=== PATIENT | female | born 1980 | race Caucasian/White ===

== ENCOUNTER → 2017-03-13 | Outpatient (CLI) | payer OTHER ==
[2017-03-13 16:03] LABS: CH 31.7; CHCM 35.2; HCT 35.9 % (34.0-46.0); HDW 2.48; HGB 12.3 gm/dL (11.4-16.0); MCH 31.1 pg (25.0-35.0); MCHC 34.3 g/dL (31.0-37.0); MCV 90.5 fL (80.0-100.0); Mean Platelet Volume 7.2; RBC 3.97 m/uL (3.80-5.40); RDW 13.9 % (11.5-15.5)
[2017-03-13 16:09] LABS: Glucose 80 mg/dL (74-99); Non-African American GFR(MDRD) >60 (>60 ml/min/1.73 sqM)
[2017-03-13 16:40] LABS: Hepatitis B Surface Ag Index 0.05
[2017-03-14 01:37] LABS: Treponemal Ab Non-Reactive (Non-Reactive)
== END | disposition home or self-care (01) ==
LOC: LABWHC1 15:41
PROVIDERS: ATTEND Obstetrics & Gynecology
DX: Z34.81 Encounter for supervision of other normal pregnancy, first trimester (principal); Z3A.00 Weeks of gestation of pregnancy not specified
CPT/HCPCS: 36415; 82565; 82947; 85027; 86762; 86780; 86850; 86900; 86901; 87340

== ENCOUNTER 2017-09-25 05:50 | Inpatient (IN) | payer OTHER ==
--- NOTE | 2017-09-24 13:21 | P.HPOB ---
History of Present Illness H&P Date: 09/24/17 Chief Complaint: Repeat section. This patient is a pleasant 37 yr female EDC 10/01/2017 EGA 39 and 1/7 weeks who presents for elective repeat section. is complicated by advance maternal age, patient had normal Materni T21 and testing (46 XY). has been otherwise uncomplicated. Patient states that her is going to get a vasectomy, therefore no tubal ligation. Review of Systems Gastrointestinal: Reports heartburn Genitourinary: Reports Menstruation: Reports amenorrhea Past Medical History Past Medical History: Cancer Additional Past Medical History / Comment(s): hx of brain tumor 12 years old , kidney stones History of Any Multi-Drug Resistant Organisms: None Reported Past Surgical History: Section Additional Past Surgical History / Comment(s): brain tumor removed at age 12 Past Anesthesia/Blood Transfusion Reactions: No Reported Reaction Past Psychological History: No Psychological Hx Reported Smoking Status: Former smoker Past Alcohol Use History: None Reported Additional Past Alcohol Use History / Comment(s): smoker 12-13 years 4 cig/day quit 2012 Past Drug Use History: None Reported - Past Family History Mother Family Medical History: No Reported History Medications and Allergies Home Medications Medication Instructions Recorded Confirmed Type Pnv,Calcium 72/Iron/Folic Acid 1 each PO DAILY 03/21/16 03/28/16 History [ Plus Tablet] Acetaminophen-Codeine 300-30mg 1 - 2 each PO Q4HR PRN #30 tab 03/29/16 Rx [Tylenol w/codeine #3] Ibuprofen [Motrin] 600 mg PO Q6HR PRN #40 tab 03/29/16 Rx Allergies Allergy/AdvReac Type Severity Reaction Status Date / Time No Known Allergies Allergy Verified 03/21/16 12:17 Exam - OBG Physical Exam Abdomen: bowel sounds normal, no diffuse tenderness, no bruit present, no guarding noted, no hepatomegaly, no splenomegaly, no mass Vulva: both: normal Vagina: normal moisture, no discharge Cervix: no lesion, no discharge Uterus: enlarged (Fundal height is 40cm.) Results labs: A positive, Rubella immune, LVR-SOE-VduX negative, Materni T21 normal, GBS was negative. Normal ultrasounds. Assessment and Plan Assessment: This is a pleasant 37 yr female 39 and 1/7 weeks who presents for elective repeat section. I have discussed this surgery and risks with the patient, including risks: infection, bleeding, possible injury to bowel/bladder /vessels/and/or other organs. Risk of DVT and PE. All of the patients questions were answered and a written consent is obtained. (1) Third trimester Status: Acute Code(s): Z33.1 - STATE, INCIDENTAL SNOMED Code(s): 74850816 (2) Previous delivery affecting Status: Acute Code(s): O34.21 - MATERNAL CARE FOR SCAR FROM PREVIOUS * DO NOT USE * SNOMED Code(s): 410418907 (3) Elderly multigravida Status: Acute Code(s): O09.529 - SUPERVISION OF ELDERLY MULTIGRAVIDA, UNSPECIFIED TRIMESTER SNOMED Code(s): 191380640
[2017-09-25] MEDS ORDERED: CITRIC ACID-SODIUM CITRATE 15 ML CUP PO ONE (06:07)
[2017-09-25] MEDS ORDERED: LACTATED RINGERS 1,000 ML IV SCH (06:07)
[2017-09-25] MEDS ORDERED: LACTATED RINGERS 1,000 ML IV ONE (06:07)
[2017-09-25 06:19] LABS: Basophils % (A) 0 %; Eosinophils # (A) 0.1 k/uL (0-0.7); Eosinophils % (A) 1 %; HCT 34.1 % (34.0-46.0); HGB 11.3 gm/dL (11.4-16.0); Lymphocytes # (A) 2.4 k/uL (1.0-4.8); Lymphocytes % (A) 38 %; MCHC 33.2 g/dL (31.0-37.0); MCV 87.5 fL (80.0-100.0); Mean Platelet Volume 9.1; Monocytes # (A) 0.3 k/uL (0-1.0); Monocytes % (A) 5 %; Neutrophils # (A) 3.4 k/uL (1.3-7.7); Neutrophils % (A) 55 %; Platelet Count 187 k/uL (150-450); RDW 13.7 % (11.5-15.5); WBC 6.2 k/uL (3.8-10.6)
[2017-09-25 06:33] VITALS: BMI 34.3
[2017-09-25] MEDS ORDERED: ceFAZolin IN SWFI 2 GM/20 ML SYRINGE IVP ONE (07:30)
[2017-09-25] MEDS ORDERED: fentaNYL (PF) 50 MCG/ML 2 ML AMP ONE (07:43)
[2017-09-25] MEDS ORDERED: PHENYLEPHRINE-0.9% NACL SYG 1 MG/10 ML SYRINGE ONE (07:43)
[2017-09-25] MEDS ORDERED: MORPHINE SULFATE (PF) 0.3 MG/0.3 ML SYR ONE (07:43)
[2017-09-25] MEDS ORDERED: ONDANSETRON 4 MG/2 ML VIAL ONE (07:43)
[2017-09-25] MEDS ORDERED: OXYTOCIN 10 UNIT/ML 1 ML VIAL ONE (07:43)
[2017-09-25] MEDS ORDERED: KETOROLAC 30 MG/ML 1 ML VIAL ONE (07:43)
--- NOTE | 2017-09-25 08:28 | P.OP ---
Date of Procedure: 09/25/17 Preoperative Diagnosis: #1: 39 and one sevenths weeks . #2: Previous section 2 desires repeat Postoperative Diagnosis: Same Procedure(s) Performed: Repeat low transverse section Anesthesia: spinal Surgeon: Felton Coats Brim Shaper #1: Leno Parnell Estimated Blood Loss (ml): 800 Pathology: other (Placenta) Condition: stable Disposition: floor Indications for Procedure: Please see dictated H&P for intimate details of this patient's admission. Brief summary this is a pleasant 37-year-old 4 para 2 female 39 and one sevenths weeks gestation is admitted for elective repeat section. Patient I discussed the surgery and risks including risks of infection, bleeding , possible injury bowel, bladder, vessels, and other organs. Patient her stands risk of DVT and pulmonary embolism. All the patient's questions are answered and a written consent is obtained. Operative Findings: This is a vigorous viable male infant Apgars 9 and 9 delivery time is 0800 hours. has spontaneous respirations and good cry and grossly appeared normal Description of Procedure: This patient is taken to the operating room where she is sat up for spinal anesthetic. She's had a Aquino catheter placed to straight drain. Spinal anesthetic is administered without incident. With an adequate level of anesthesia via abdominal prep and drape. Scalpels and taken in the previous Pfannenstiel incision is incised. A second scalpel is taken down the fascia the fascia scored with a knife. Fascial incision extended bilaterally using Engle scissors. Fascia is then dissected sharply off the rectus muscles with the Engle scissors. The rectus muscles are and the peritoneum was identified and entered sharply. Peritoneal incision extended superior and inferior without difficulty. Bladder blade is then placed. Bladder peritoneum taken sharply off the lower uterine segment. Scalpels and taken a low transverse uterine incision is then made. Using a hemostat I enter the uterine cavity bluntly and there is loss of clear fluid. This infant's head is then gently guided through the incision and delivered with fundal pressure. Mouth and nares are bulb suctioned and there is no evidence of a nuchal cord. We then have delivery anterior posterior shoulder and rest of this infant's body. Vigorous viable male Apgars are 9 and 9 delivery time is 0800 hours. After delivery of the infant the umbilical cord is doubly clamped and cut appears to be trivascular. The placenta is then manually extracted intact. The uterus is then externalized uterine incision demarcated with Martínez clamps. All debris is removed from the uterus. Uterine incision is then closed using 0 Vicryl running locked fashion 2 layers. Excellent hemostasis is noted. Excess fluid is removed from the abdomen and pelvis uterus placed back into the abdomen. The uterus tubes and ovaries appear normal for term gestation. With this done the parietal peritoneum was identified and closed using 0 Vicryl running fashion. Rectus muscles reapproximated in 0 Vicryl interrupted fashion. Fascial incision is then closed in 0 PDS in a running fashion. Fascial incision is intact and hemostatic. Subcutaneous tissues and closed using a 3-0 Vicryl. Skin is and closed using roberto and sterile dressing is applied. All counts are correct 3. There are no complications. Infant and mother are taken to the birthing suite in satisfactory condition.
[2017-09-25] MEDS ORDERED: ONDANSETRON 4 MG/2 ML VIAL IVP PRN (09:20)
[2017-09-25] MEDS ORDERED: METOCLOPRAMIDE 5 MG/ML 2 ML VIAL IVP PRN (09:20)
[2017-09-25] MEDS ORDERED: ACETAMINOPHEN TAB 325 MG TAB PO PRN (09:20)
[2017-09-25] MEDS ORDERED: SIMETHICONE 80 MG CHEWABLE PO PRN (09:20)
[2017-09-25] MEDS ORDERED: diphenhydrAMINE 50 MG/ML 1 ML VIAL IVP PRN (09:20)
[2017-09-25] MEDS ORDERED: OXYTOCIN 20 UNITS/1000 ML NS 1,000 ML IV SCH (09:20)
[2017-09-25] MEDS ORDERED: KETOROLAC 30 MG/ML 1 ML VIAL IVP PRN (09:20)
[2017-09-25] MEDS ORDERED: diphenhydrAMINE 25 MG CAP PO PRN (09:20)
[2017-09-25] MEDS ORDERED: NALOXONE 0.4 MG/ML 1 ML VIAL IV PRN (09:20)
[2017-09-25] MEDS ORDERED: ZOLPIDEM 5 MG TAB PO PRN (09:20)
[2017-09-25] MEDS: SENNOSIDES-DOCUSATE SODIUM 1 EACH TAB PO SCH ×2 (09:38→21:26)
[2017-09-25] MEDS: LACTATED RINGERS 1,000 ML IV SCH (23:57)
[2017-09-26 06:15] LABS: Basophils % (A) 0 %; Eosinophils # (A) 0.1 k/uL (0-0.7); Eosinophils % (A) 1 %; HCT 28.4 % (34.0-46.0); Lymphocytes # (A) 1.3 k/uL (1.0-4.8); Lymphocytes % (A) 20 %; MCH 29.9 pg (25.0-35.0); MCHC 34.3 g/dL (31.0-37.0); MCV 87.2 fL (80.0-100.0); Mean Platelet Volume 8.3; Monocytes # (A) 0.3 k/uL (0-1.0); Monocytes % (A) 4 %; Neutrophils # (A) 5.1 k/uL (1.3-7.7); Neutrophils % (A) 74 %; Platelet Count 152 k/uL (150-450); RBC 3.26 m/uL (3.80-5.40); RDW 13.6 % (11.5-15.5); WBC 6.8 k/uL (3.8-10.6)
[2017-09-26 06:20] LABS: HGB 9.7 gm/dL (11.4-16.0)
--- NOTE | 2017-09-26 06:41 | P.PNOBGPC ---
Subjective - Subjective Patient reports: Reports appetite normal, Reports voiding normally, Reports pain well controlled, Reports ambulating normally : doing well Objective - Vital Signs Latest vital signs: Vital Signs Temp Pulse Resp BP Pulse Ox 09/26/17 04:00 98.7 F 98 16 123/74 99 09/25/17 23:53 98.4 F 103 H 18 109/72 100 09/25/17 20:00 98.0 F 102 H 16 127/75 09/25/17 14:56 97.9 F 75 20 117/69 98 09/25/17 12:00 79.5 F L 73 16 122/66 09/25/17 10:24 97.8 F 70 16 114/60 99 09/25/17 09:54 76 16 101/58 98 09/25/17 09:24 77 16 106/58 09/25/17 09:09 76 16 108/64 98 09/25/17 08:54 80 16 109/59 98 09/25/17 08:39 80 16 104/55 100 09/25/17 08:24 96.4 F L 88 16 119/66 99 Intake and Output 09/25/17 09/25/17 09/26/17 14:59 22:59 06:59 Intake Total 1980 Output Total 2400 400 Balance -420 -400 Intake: IV 1400 Oral 580 Output: Urine 1600 400 Estimated Blood Loss 800 Other: # Voids 2 1 - Exam Lungs: bilateral: normal Chest: Normal S1, Normal S2 Extremities: Present: normal Abdomen: Present: normal appearance, soft. Absent: distention, tenderness Incision: Present: normal, dry, intact Uterus: Present: normal, firm - Labs Labs: Abnormal Lab Results - Last 24 Hours (Table) 09/26/17 Range/Units 05:56 RBC 3.26 L (3.80-5.40) m/uL Hgb 9.7 L D (11.4-16.0) gm/dL Hct 28.4 L (34.0-46.0) % Assessment and Plan Assessment: Post operative day #1. Patient is resting without complaints. Vital signs are stable she is afebrile. Uterus is firm nontender she's having normal lochia. Incision is intact and dry. Patient is tolerating regular diet, urinating, ambulating without difficulty. My impression is a normal postoperative course. Plan today is check a CBC, encourage ambulation, and continue routine postoperative care. (1) Third trimester Current Visit: No Status: Acute Code(s): Z33.1 - STATE, INCIDENTAL SNOMED Code(s): 66818357 (2) Previous delivery affecting Current Visit: No Status: Acute Code(s): O34.21 - MATERNAL CARE FOR SCAR FROM PREVIOUS * DO NOT USE * SNOMED Code(s): 404821733 (3) Elderly multigravida Current Visit: No Status: Acute Code(s): O09.529 - SUPERVISION OF ELDERLY MULTIGRAVIDA, UNSPECIFIED TRIMESTER SNOMED Code(s): 264534605
[2017-09-26] MEDS ORDERED: HYDROcodone/APAP 5-325MG 1 EACH TAB PO PRN (06:44)
[2017-09-26] MEDS: SENNOSIDES-DOCUSATE SODIUM 1 EACH TAB PO SCH (07:35)
--- NOTE | 2017-09-26 07:56 | P.PN ---
Progress Note - Text Date: 09/26/2017 Time: 0708 The patient is status post section Vital signs stable VAS: 0-10 Patient has no complaints of pain. The patient incurred some minimal itching yesterday, this itching is now subsiding. Pain meds to be managed by service.
[2017-09-26] MEDS: IBUPROFEN 600 MG TAB PO PRN ×2 (08:11→15:00)
[2017-09-26 16:20] VITALS: RESP 16
[2017-09-27] MEDS: IBUPROFEN 600 MG TAB PO PRN ×2 (01:06→07:18)
[2017-09-27] MEDS: SENNOSIDES-DOCUSATE SODIUM 1 EACH TAB PO SCH ×2 (01:08→11:48)
--- NOTE | 2017-09-27 08:51 | P.DS ---
Providers Date of admission: 09/25/17 05:50 Expected date of discharge: 09/27/17 Attending physician: Felton Coats Primary care physician: Stated None Hospital Course: Please see history and physical for details of patient's admission. Patient underwent a scheduled repeat section on 09/25/2017. She delivered a viable male infant with scores of 9 at 1 minute and 9 at 5 minutes and infant weight of 8 lbs. 11 oz. Her postoperative course has been uncomplicated. Her lochia is decreasing. She has had a bowel movement. Pain is well-controlled. She is breast-feeding. Vital signs are stable. Abdomen is soft with positive bowel sounds 4. Incision is clean dry and intact. Extremities show negative Homans. Impression is status post repeat section postoperative day #2. Plan is to discharge home today. Routine postoperative and instructions are given. Prescriptions have already been written by Dr. Coats. She is advised to follow up in approximately 1 week for a postoperative check and in 6 weeks for check. She is advised to call the office if she has any further questions or concerns prior to her appointment time. Gabriel will be removed and Steri- Strips placed prior to discharge. Procedures: Repeat low transverse section with delivery of a viable male on 09/25/2017. Patient Condition at Discharge: Stable Plan - Discharge Summary New Discharge Prescriptions: New HYDROcodone/APAP 5-325MG [[place] 5-325] 1 each PO Q4HR PRN #40 tab PRN Reason: Pain Ibuprofen [Motrin] 600 mg PO Q6HR PRN #40 tab PRN Reason: Mild Pain Or Fever >= 100.5 No Action Pnv,Calcium 72/Iron/Folic Acid [ Plus Tablet] 1 each PO DAILY Discharge Medication List Pnv,Calcium 72/Iron/Folic Acid [ Plus Tablet] 1 each PO DAILY 03/21/16 [ History] HYDROcodone/APAP 5-325MG [[place] 5-325] 1 each PO Q4HR PRN #40 tab 09/26/17 [Rx] Ibuprofen [Motrin] 600 mg PO Q6HR PRN #40 tab 09/26/17 [Rx] Follow up Appointment(s)/Referral(s): Felton Coats MD [STAFF PHYSICIAN] - 1 Week Patient Instructions/Handouts: (DC) Activity/Diet/Wound Care/Special Instructions: No heavy lifting or strenuous activities for 6 weeks. Please call if any fever , chills, excessive vaginal bleeding or abdominal pain. No intercourse for 6 weeks. No driving. Discharge Disposition: HOME SELF-CARE
[2017-09-27 11:53] VITALS: BP 91/67; PULSE 68; TEMP 97.8
== END 2017-09-27 10:10 | disposition home or self-care (01) | DRG 766 ==
LOC: 4FBP 05:50
PROVIDERS: ADMIT Obstetrics & Gynecology; ATTEND Obstetrics & Gynecology
PROC: 10D00Z1 Extraction of Products of Conception, Low, Open Approach (ICD-10-PCS; principal; 2017-09-25 07:57)
DX: O34.211 Maternal care for low transverse scar from previous cesarean delivery (principal); O09.523 Supervision of elderly multigravida, third trimester; Z3A.39 39 weeks gestation of pregnancy; Z87.442 Personal history of urinary calculi; Z87.891 Personal history of nicotine dependence; Z37.0 Single live birth
CPT/HCPCS: 85025; 86850; 86900; 86901; 88307

== ENCOUNTER → 2018-03-17 | Outpatient (CLI) | payer OTHER ==
[2018-03-17 13:22] LABS: HGB 12.7 gm/dL (11.4-16.0); MCH 30.3 pg (25.0-35.0); MCHC 33.5 g/dL (31.0-37.0); MCV 90.5 fL (80.0-100.0); Mean Platelet Volume 6.5; Platelet Count 354 k/uL (150-450); RDW 12.3 % (11.5-15.5); WBC 8.8 k/uL (3.8-10.6)
[2018-03-17 13:45] LABS: ALT 27 U/L (9-52); AST 31 U/L (14-36); Albumin 4.6 g/dL (3.5-5.0); Alkaline Phosphatase 87 U/L (38-126); Anion Gap 11 mmol/L; Blood Urea Nitrogen 16 mg/dL (7-17); Calcium 9.7 mg/dL (8.4-10.2); Carbon Dioxide 27 mmol/L (22-30); Chloride 104 mmol/L (98-107); Glucose 89 mg/dL (74-99); Potassium 4.5 mmol/L (3.5-5.1); Sodium 142 mmol/L (137-145); Total Bilirubin 0.3 mg/dL (0.2-1.3)
[2018-03-17 20:07] LABS: Gliadin AB IgA, Unit <0.2 U/mL
== END ==
LOC: LABWHC1 12:55
PROVIDERS: ATTEND Physician Assistant
DX: R19.4 Change in bowel habit (principal)
CPT/HCPCS: 36415; 80053; 83516; 84443; 85027

== ENCOUNTER → 2020-01-21 | Outpatient (CLI) | payer OTHER ==
--- NOTE | 2020-01-22 08:22 | MM ---
Reason for exam: screening (asymptomatic). Baseline mammogram. History: Patient history of other cancer and had first child at age 35. Physical Findings: Nurse did not find any significant physical abnormalities on exam. MG 3D Screening Mammo W/Cad Bilateral CC and MLO view(s) were taken. The breast tissue is extremely dense which could obscure a lesion on mammography. Finding: There is a questionable 5 mm equal density (isodense) mass in the inner quadrant of the right breast. These results were verbally communicated with the patient and result sheet given to the patient on 01/21/20. ASSESSMENT: Incomplete: need additional imaging evaluation, BI-RAD 0 RECOMMENDATION: Special view mammogram of the right breast.
--- NOTE | 2020-01-22 08:28 | MM ---
Reason for exam: additional evaluation requested from abnormal screening. History: Patient history of other cancer and had first child at age 35. Physical Findings: Breast exam preformed at baseline screening. MG 3D Work Up W/Cad RT CC and MLO view(s) were taken of the right breast. The breast tissue is extremely dense which could obscure a lesion on mammography. Finding: There is a questionable 4.8 mm mass in the inner quadrant of the right breast. These results were verbally communicated with the patient and result sheet given to the patient on 01/21/20. ASSESSMENT: Incomplete: need additional imaging evaluation, BI-RAD 0 RECOMMENDATION: Ultrasound of both breasts.
--- NOTE | 2020-01-22 08:29 | USB ---
Reason for exam: additional evaluation requested from abnormal screening. History: Patient history of other cancer and had first child at age 35. US Breast Workup Limited RT Right limited breast ultrasound including focal area of concern, retroareolar and axilla demonstrates no cystic or solid lesion seen. These results were verbally communicated with the patient and result sheet given to the patient on 01/21/20. ASSESSMENT: Probably benign, BI-RAD 3 RECOMMENDATION: Follow-up diagnostic mammogram and ultrasound of the right breast in 6 months.
== END | disposition home or self-care (01) ==
LOC: RADMAMWWP 13:08
PROVIDERS: ATTEND Family Medicine
DX: R92.8 Other abnormal and inconclusive findings on diagnostic imaging of breast (principal); Z12.31 Encounter for screening mammogram for malignant neoplasm of breast
CPT/HCPCS: 77061; 77063; 77065; 77067

== ENCOUNTER → 2020-03-04 | Outpatient (CLI) | payer OTHER ==
--- NOTE | 2020-03-04 12:58 | MR ---
MR kidneys with and without contrast HISTORY: D 41.01, Abnormal CT, renal mass Multiplanar multisequence and postcontrast images obtained through the abdomen, patient received 60 c c Gadavist IV Correlation to CT abdomen dated 01/29/2020 from outside institution Deformity of the right kidney is again noted, there are areas of cortical thinning, appearance is dys morphic. Both kidneys show excretion. There is no hydronephrosis. The lung bases are clear. There is no pleural or pericardial effusion. Liver shows no mass. Gallbladd er is normal. The spleen, adrenal glands, pancreas are normal. There is no retroperitoneal adenopathy or ascites. No evident bowel obstruction. Aorta shows normal caliber. There are graph impression: Dysmorphic right kidney. No focal renal mass.
== END | disposition home or self-care (01) ==
LOC: RADMRIMAIN 05:58
PROVIDERS: ATTEND Urology
DX: N28.9 Disorder of kidney and ureter, unspecified (principal)
CPT/HCPCS: 74183; A9585